=== PATIENT | male | born 1945 | race Caucasian/White ===

== ENCOUNTER → 2023-05-13 11:33 | Outpatient (REF) | payer MEDICARE, OTHER, SELFPAY ==
[2023-05-13 13:20] LABS: HDL Cholesterol 54 mg/dl; LDL Cholesterol, Calculated 69 mg/dl; Total Cholesterol 146 mg/dl (50-199); Triglyceride 115 mg/dl (10-149); Very Low Density Lipoprotein 23 mg/dl (0-30)
== END ==
LOC: REG 11:33
PROVIDERS: ATTENDING PHYSICIAN Internal Medicine Cardiovascular Disease; FAMILY PHYSICIAN Internal Medicine
DX: E78.2 Mixed hyperlipidemia (principal)
CPT/HCPCS: 36415; 80061

== ENCOUNTER → 2023-05-28 15:55 | Outpatient (REF) | payer MEDICARE, OTHER, SELFPAY | LOC: RCS 15:55 | PROVIDERS: ATTENDING PHYSICIAN Internal Medicine Cardiovascular Disease; FAMILY PHYSICIAN Internal Medicine | DX: I35.0 Nonrheumatic aortic (valve) stenosis (principal) | CPT/HCPCS: 93306 ==

== ENCOUNTER → 2023-06-17 10:09 | Outpatient (REF) | payer MEDICARE, OTHER, SELFPAY ==
[2023-06-21 01:19] LABS: Albumin 4.35 g/dL (3.75-5.01); Alpha 1 Globulin 0.35 g/dL (0.19-0.46); Free Kappa Light Chains,Quant 14.75 mg/L (3.30-19.40); Free Lambda Light Chains,Quant 8.49 mg/L (5.71-26.30); IgA 83 mg/dL (68-408); IgG 560 mg/dL (768-1632); IgM 23 mg/dL (35-263); Immunofixation Electrophoresis IFE Done; Kappa/Lambda Fr Light Ratio 1.74 (0.26-1.65)
== END ==
LOC: REG 10:09
PROVIDERS: ATTENDING PHYSICIAN Internal Medicine Cardiovascular Disease; FAMILY PHYSICIAN Internal Medicine
DX: I10 Essential (primary) hypertension (principal)
CPT/HCPCS: 36415; 82784; 83521; 84155; 84165; 86334

== ENCOUNTER → 2023-06-19 14:33 | Outpatient (REF) | payer MEDICARE, OTHER, SELFPAY ==
[2023-06-22 23:59] LABS: 24 Hour Urine Total Volume 1650 mL; Urine Collection Length 24 hr; Urine Free Kappa Excretion/Day 4.12 mg/d; Urine Free Lambda Light Chains <0.74 mg/L (0.00-3.79)
== END ==
LOC: REG 14:33
PROVIDERS: ATTENDING PHYSICIAN Internal Medicine Cardiovascular Disease; FAMILY PHYSICIAN Internal Medicine
DX: I10 Essential (primary) hypertension (principal)
CPT/HCPCS: 81050; 83521; 84156; 86335

== ENCOUNTER → 2023-07-01 10:50 | Outpatient (REF) | payer MEDICARE, OTHER, SELFPAY | LOC: RAD 10:50 | PROVIDERS: ATTENDING PHYSICIAN Internal Medicine Cardiovascular Disease; FAMILY PHYSICIAN Internal Medicine | DX: E85.9 Amyloidosis, unspecified (principal) | CPT/HCPCS: 78803; A9538 ==

== ENCOUNTER → 2023-11-24 10:16 | Outpatient (REF) | payer MEDICARE, OTHER, SELFPAY | LOC: RCS 10:16 | PROVIDERS: ATTENDING PHYSICIAN Internal Medicine Cardiovascular Disease; FAMILY PHYSICIAN Internal Medicine | DX: I10 Essential (primary) hypertension (principal); I35.0 Nonrheumatic aortic (valve) stenosis | CPT/HCPCS: 93306 ==

== ENCOUNTER → 2023-12-31 10:06 | Outpatient (REF) | payer MEDICARE, OTHER, SELFPAY ==
[2023-12-31 11:12] LABS: % Basophils 0.8 % (0-2); % Eosinophils 1.5 % (0-6); % Immature Granulocytes 0.5 % (0-0.5); % Lymphocytes 26.6 % (20.5-51.1); % Monocytes 7.7 % (1.7-9.3); % Neutrophils 62.9 % (42.2-75.2); Absolute Basophils 0.1 10^3/uL (0-0.2); Absolute Eosinophils 0.1 10^3/uL (0-0.7); Absolute Lymphocytes 1.7 10^3/uL (1.2-3.4); Absolute Monocytes 0.5 10^3/uL (0.1-0.6); Absolute Neutrophils 4.1 10^3/uL (1.4-6.5); Hematocrit 44.4 % (39.0-52.0); Hemoglobin 15.1 g/dL (13.0-18.0); Mean Corpuscular Hgb 28.7 pg (27.0-31.0); Mean Corpuscular Volume 84.3 fL (80.0-94.0); Mean Platelet Volume 10.7 fL (7.4-10.4); Nucleated Red Blood Cells % 0 % (-); Platelet Count 130 10^3/uL (130-400); Red Blood Cell Count 5.27 10^6/uL (4.70-6.10); Red Cell Dist. Width 13.3 % (11.5-14.5); White Blood Cell Count 6.5 10^3/uL (4.8-10.8)
[2023-12-31 11:58] LABS: ALT (SGPT) 28 U/L (0-50); AST (SGOT) 26 U/L (17-59); Albumin 4.7 g/dl (3.5-5.0); Alkaline Phosphatase 50 U/L (38-126); Blood Urea Nitrogen 20 mg/dl (9-20); Calcium 9.8 mg/dl (8.4-10.2); Carbon Dioxide 24 mmol/L (22-30); Chloride 103 mmol/L (98-107); Glucose 98 mg/dl (70-99); HDL Cholesterol 52 mg/dl; LDL Cholesterol, Calculated 65 mg/dl; Potassium 4.6 mmol/L (3.5-5.1); Sodium 141 mmol/L (135-145); Total Bilirubin 0.7 mg/dl (0.2-1.3); Total Cholesterol 137 mg/dl (50-199); Total Protein 6.7 g/dl (6.3-8.2); Triglyceride 102 mg/dl (10-149); Very Low Density Lipoprotein 20 mg/dl (0-30); eGFR > 60.00
[2023-12-31 12:02] LABS: NT-proBNP 132 pg/ml
== END ==
LOC: REG 10:06
PROVIDERS: ATTENDING PHYSICIAN Internal Medicine Cardiovascular Disease; FAMILY PHYSICIAN Internal Medicine
DX: I10 Essential (primary) hypertension (principal); E78.2 Mixed hyperlipidemia; I35.0 Nonrheumatic aortic (valve) stenosis
CPT/HCPCS: 36415; 80053; 80061; 83880; 85025

== ENCOUNTER 2024-01-02 06:13 | Day surgery (SDC) | payer MEDICARE, OTHER, SELFPAY ==
[2024-01-02] VITALS (16 sets, daily range): BP systolic 110–160; BP diastolic 61–89; BMI 36.0
[2024-01-02] MEDS: LOW STRENGTH ASPIRIN 81 MG PO (06:50)
[2024-01-02] MEDS: NSS 331 ML IV (07:07)
[2024-01-02 09:05] LABS: ACT-LR - POC 266 Seconds (116-155)
[2024-01-02 09:20] LABS: ACT-LR - POC 366 Seconds (116-155)
[2024-01-02] MEDS: LASIX 20 MG IV (10:04)
--- NOTE | 2024-01-02 11:56 | CONSULT.STRU ---
Consultation
-
Date/Time Consultation Requested: 01/02/2024
Date/Time Consultation Performed: 01/02/2024
Requesting Provider: Dr. Miriam Issa
Performing Provider: EDUARDO Oropeza
Reason for Consultation: Aortic stenosis/ TAVR evaluation
Patient History
Physicians
Family Physician: Dr. Butch Donahue
Outpatient Forensic Psychiatrist: Dr. Florencia Whatley
Primary Forensic Psychiatrist: Dr. Florencia Whatley
History of Present Illness
Mr. Gauthier is a very pleasant 78yo male with know history of aortic stenosis. He denies any symptoms of GANDHI, SOB, palpitations, PND, orthopnea or peripheral edema. He does say he has had some very mild chest discomfort on occasion but not associated
with rest or exertion. It has been short lived and self resolving, No predisposing factors that he is aware of. No radiation to neck or arm. No other associated symptoms. 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 It is really unclear if either of these are related to his aortic stenosis. His echo on 11/24/2023 noted EF 55-60%, AV PG/M/33, IRIS: 0.6-0.7, mild AI, mild MR, mild mitral stenosis.
Reviewed the pathophysiology of aortic stenosis with the patient. Explained the treatment options of SAVR and TAVR. Explained the TAVR evaluation process including follow up BMP, CT TAVR scan, CT surgery consult and Heart Team discussion. Explained
he will need dental clearance prior to his valve replacement. Provided with script for BMP next week, script and appointment for CT TAVR, Consult appointment with Dr. Reyes and a copy of the TAVR education booklet with contact information. Allowed
for and answered questions.
Past Medical History
Past Medical History: CAD, Cancer (h/o prostate cancer ad basal cell), GERD, HTN, Hypercholesterolemia, LINDA (CPAP compliant), Valvular Disease (Moderate to severe aortic stenosis, mild AI, mild mitral stenosis, mild MR, mild TR) and Other (anemia,
h/o GI bleeding)
Past Surgical History
Past Surgical History: Orthopedic (Right THR, Right rotator cuff repair) and Other (radical prostatectomy, spinal ablation, bilateral cataract surgery, removal of basal cell CA, ankle surgery)
Dental History
Regular dental care- Dr. Mckenzie Freire
Family History
Mother: at Age (78yo, COPD)
Father: at Age (61yo, [place])
Social History
Alcohol: Occasional
Drug: None
Tobacco: Former Smoker
Personal:
Living: With Spouse
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
Allergies
Allergy/AdvReac Type Severity Reaction Status Date / Time
pollen extracts Allergy SNEEZING/STUFFY Verified 01/02/24 07:01
NOSE
Home Medications
�Medication �Instructions �Recorded �Confirmed �Type
coenzyme Q10 300 mg capsule (Co 300 mg PO DAILY Supplement 10/11/19 01/02/24 History
Q-10)
multivitamin 1 ea PO DAILY Supplement 10/11/19 01/02/24 History
ferrous sulfate 325 mg (65 mg 325 mg PO DAILY Supplement 10/23/19 01/02/24 History
iron) tablet (FeroSul)
aspirin 81 mg tablet,delayed 81 mg PO DAILY Blood clot 10/25/19 01/02/24 Rx
release prevention/tx ##0
cholecalciferol (vitamin D3) 25 2,000 units PO DAILY 12/09/19 01/02/24 History
mcg (1,000 unit) tablet
krill 500 mg-omega-3 150 mg-dha 45 1 ea PO DAILY 12/28/19 01/02/24 History
mg-epa 75 [id number] capsule
(krill oil)
ezetimibe 10 mg tablet (Zetia) 10 mg PO DAILY 01/02/24 01/02/24 History
furosemide 20 mg tablet (Lasix) 20 mg PO DAILY #90 tabs 01/02/24 Rx
lisinopril 20 mg tablet 20 mg PO DAILY 01/02/24 01/02/24 History
metoprolol succinate 25 mg 50 mg (2 x 25 mg) PO DAILY Blood 01/02/24 01/02/24 Rx
tablet,extended release 24 hr pressure #0 tabs
rosuvastatin 20 mg tablet 40 mg (2 x 20 mg) PO DAILY #0 tabs 01/02/24 01/02/24 Rx
STS%
STS %: 1.5% AVR, 2.2% AVR + CABG
Review of Systems
-
History Source: Patient
General: Reports No Symptoms; Denies Fatigue
HEENT: Reports No Symptoms
Respiratory: Reports No Symptoms; Denies SOB, GANDHI, Cough or PND
Cardiac: Reports Chest Pain (has felt on occasion very minimal chest discomfort, relieved with no intervention); Denies Palpitations or Edema
Abdomen/GI: Reports No Symptoms; Denies Abdominal Pain, Reflux, Indigestion, Diarrhea or Constipation
: Reports Frequency; Denies Urgency or Hematuria
Musculoskeletal: Reports No Symptoms; Denies Edema
Skin: Reports No Symptoms
Neurological: Reports Syncope (atatre on brief syncopal episode when changing a lightbulb a few months ago)
Vascular: Reports No Symptoms
Physical Exam
Vital Signs
Temp 97.3 F 01/02/24 06:52
Temp route: Oral 01/02/24 06:52
Pulse 72 01/02/24 10:04
Resp Rate 22 01/02/24 07:15
Blood pressure 133/63 01/02/24 10:04
Blood pressure extremity used: Left upper arm 01/02/24 06:52
Position: Sitting 01/02/24 06:52
MAP (cuff-Felipe Monitor) 98 01/02/24 06:45
SaO2 97 01/02/24 06:52
Oxygen Mode of Delivery Room air 01/02/24 06:52
Can the patient verbally communicate their pain? Yes 01/02/24 06:52
Actual Weight 110.4 kg 01/02/24 06:51
Body Mass Index (BMI) 36.0 01/02/24 06:51
Labs
12/31/2023:
H/H: 15.1/44.4
WBC: 6.5
Platelets: [id number]
BUN/Creat: 20/0.8
GFR: >60
Diagnostic Studies
Echocardiogram 11/24/2023:
CONCLUSIONS
Normal left ventricular chamber size. Normal left ventricular systolic
function. Normal regional wall motion. LVEF visually 55 to 60%. Moderate
concentric left ventricular hypertrophy. Stage II diastolic dysfunction
suggestive of abnormal relaxation and increased filling pressures.
Normal right ventricular size and function.
Thickened mitral valve leaflets. Mitral annular calcification. Mild mitral
stenosis. Mild mitral regurgitation.
Calcified aortic valve. Thickened aortic valve with restricted leaflet motion.
Moderate to severe aortic stenosis. Peak gradient 58mmHg/Mean gradient 33mmHg -
using an LVOT of 2.1cm the estimated aortic valve area is 0.6-0.7cm2. Mild
aortic regurgitation.
Tricuspid valve opens normally. Mild tricuspid regurgitation. Estimated
pulmonary artery pressure of 35-40 mmHg assuming a right atrial pressure of 3
mmHg.
Compared to prior study 05/28/2023 no significant change.
Indications:
ESSENTIAL (PRIMARY) HYPERTENSION
Rhythm: Sinus
Portable Study: No
Technical Quality: Technically difficult but
adequate for interpretation
Contrast: None
BP: 150 / 78
PROCEDURE
A complete Transthoracic Echocardiogram was performed utilizing two-dimensional
evaluation with color flow and spectral Doppler analysis.
FINDINGS
Left Ventricle
Normal left ventricular chamber size. Normal left ventricular systolic
function. Normal regional wall motion. LVEF visually 55 to 60%. Moderate
concentric left ventricular hypertrophy. Stage II diastolic dysfunction
suggestive of abnormal relaxation and increased filling pressures.
Right Ventricle
Normal right ventricular size and function.
Left Atrium
Indexed LA volume is moderately abnormal (42-48 mL/m2).
Right Atrium
Normal right atrium.
Mitral Valve
Thickened mitral valve leaflets. Mitral annular calcification. Mild mitral
stenosis. Mild mitral regurgitation.
Aortic Valve
Calcified aortic valve. Thickened aortic valve with restricted leaflet motion.
Moderate to severe aortic stenosis. Peak gradient 58mmHg/Mean gradient 33mmHg -
using an LVOT of 2.1cm the estimated aortic valve area is 0.6-0.7cm2. Mild
aortic regurgitation.
Tricuspid Valve
Tricuspid valve opens normally. Mild tricuspid regurgitation. Estimated
pulmonary artery pressure of 35-40 mmHg assuming a right atrial pressure of 3
mmHg.
Pulmonic Valve
Pulmonic valve opens normally. Trace pulmonic regurgitation.
Pericardium\\Pleura
Normal pericardium and pleura without evidence of effusion.
Aorta
The aortic root is normal in caliber. The aortic arch is normal in caliber.
Other Finding
The IVC is of normal size and demonstrates normal respiratory variation.
Interatrial septum is intact with no evidence of shunting by color flow
Doppler. No intracardiac mass or thrombus formation seen.
MEASUREMENTS (Male / Female) Normal Values
2D ECHO
LV Diastolic Diameter PLAX 4.9 cm 4.2 - 5.9 / 3.9 - 5.3 cm
LV Systolic Diameter PLAX 3.5 cm
IVS Diastolic Thickness 1.5 cm 0.6 - 1.0 / 0.6 - 0.9 cm
LVPW Diastolic Thickness 1.2 cm 0.6 - 1.0 / 0.6 - 0.9 cm
LV Relative Wall Thickness 0.6
LVOT Diameter 2.1 cm
LA Area 4C View 29.6 cm2 <= 20 cm2
LA Length 4C 6.7 cm
LA Volume 104.0 cm3 18 - 58 / 22 - 52 cm3
RV Diastolic Basal Diameter 3.5 cm 2.0 - 2.8 cm
RV Diastolic Mid Diameter 2.8 cm 2.7 - 3.3 cm
Aorta at Sinotubular Diameter 3.2 cm
Ascending Aorta Diameter 3.5 cm
Aorta at Sinuses Diameter 3.4 cm
DOPPLER
AV Peak Velocity 380.0 cm/s
AV Peak Gradient 57.8 mmHg
AV Mean Gradient 33.0 mmHg
AV Velocity Time Integral 85.5 cm
LVOT Peak Velocity 71.8 cm/s
LVOT Peak Gradient 2.1 mmHg
LVOT Velocity Time Integral 14.9 cm
LVOT Stroke Volume 53.9 cm3
LVOT Stroke Volume Index 22.9 ml/m2 empty
LVOT Cardiac Index 1394.2 cm3/min
AV Area Cont Eq vti 0.6 cm2
AV Area Cont Eq pk 0.7 cm2
MV Peak Velocity 101.0 cm/s
MV Peak Gradient 4.1 mmHg
MV Mean Velocity 51.7 cm/s
MV Mean Gradient 1.0 mmHg
Mitral E Point Velocity 78.0 cm/s
Mitral A Point Velocity 59.8 cm/s
Mitral E to A Ratio 1.3
LV E' Lateral Velocity 7.8 cm/s
Mitral E to LV E' Lateral Ratio 10.0
LV E' Septal Velocity 5.8 cm/s
Mitral E to LV E' Septal Ratio 13.5
TR Peak Velocity 295.0 cm/s
TR Peak Gradient 34.8 mmHg
Exam
General: Well Developed, Well Nourished, No Apparent Distress and Comfortable
HEENT: Moist Mucous Membranes and PERRLA
Neck: Trachea Midline
Respiratory: Clear; Negative Wheezes, Crackles, Rhonchi or Accessory Muscle Use
Cardiac: S1/S2, Regular Rhythm and Murmur (Grade III/ systolic )
GI: Soft, Non Tender, Non Distended and Normal Bowel Sounds
Rectal: Deferred by Provider
Skin: Warm and Dry
Neuro: AO x 3, No Motor Deficits and Nonfocal/Grossly Intact
Extremities: Pulses (+2 DP pulses bilaterally); Negative Lower Level Edema
Psych: Calm
Assessment / Plan
-
Procedure Type:�Isolated AVR
PERIOPERATIVE OUTCOME ESTIMATE %
Operative Mortality 1.5%
Morbidity & Mortality 7.21%
Stroke 0.951%
Renal Failure 1.12%
Reoperation 3.83%
Prolonged Ventilation 2.64%
Deep Sternal Wound Infection 0.057%
Long Hospital Stay (>14 days) 2.47%
Short Hospital Stay (<6 days)* 52.9%
Procedure Type:�CABG + AVR
PERIOPERATIVE OUTCOME ESTIMATE %
Operative Mortality 2.2%
Morbidity & Mortality 8.91%
Stroke 0.963%
Renal Failure 1.27%
Reoperation 4.53%
Prolonged Ventilation 4.51%
Deep Sternal Wound Infection 0.105%
Long Hospital Stay (>14 days) 5.55%
Short Hospital Stay (<6 days)* 36.7%
Severe Aortic stenosis:
��������������� Continue evaluation for TAVR
��������������� BMP 01/09/2024 at [facility]
��������������� CT TAVR scan 01/14/2024 at
��������������� CT surgery consult with Dr. Reyes 01/21/2024 at 1000
��������������� Heart team discussion at [facility]
Dental clearance
CAD
Heart healthy diet
ASA/BB/statin
Recommendations per cardiology
Data Reviewed
-
EKG: Report Reviewed by me
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
Echo: Report Reviewed by me
Labs: Labs Reviewed by me
Old Records: Reviewed (Cardiology office notes)
Total Time Spent with Patient (in minutes): 30
--- NOTE | 2024-01-02 15:22 | ITS.CL.CATH ---
[facility] - Catheterization
Cardiac Catheterization
Procedure Report:
LEFT AND RIGHT HEART CATHETERIZATION
Date of Procedure: January 02, 2024
Referring: Dr. Florencia Whatley
PROCEDURES:
1. Left heart catheterization, coronary angiogram.
2. Right heart catheterization
3. Ultrasound-guided access
INDICATION: Patient is a 78-year-old gentleman with past medical history of hypertension, hyperlipidemia, obstructive sleep apnea, morbid obesity, right hip osteoarthritis, coronary artery disease, moderate to severe aortic stenosis by echo with
trans aortic mean gradient of 33 mmHg who presents today for a left and right heart catheterization given recent exertional chest discomfort and shortness of breath to rule out obstructive CAD or severe aortic stenosis and assess invasive
hemodynamics
ACCESS:
1. Right radial artery, 6 [place] sheath, under ultrasound guidance.
2. Right brachial vein, 6 [place] sheath, under ultrasound guidance.
HEMODYNAMICS : (mmHg)
RA (m) : 13
RV (s/d,m) : 46/12, 20
PA (s/d, m) : 42/21, 30
PCWP (m) : 19
PA saturation: 74.2% on room air
AO saturation: 95.7% on room air
SVC saturation: 77.9% on room air
Cardiac Output : 6.02 L/min
Cardiac Index : 2.7 L/min/m-2
Systemic vascular resistance: 1221 dsc^(-5)
Pulmonary vascular resistance: 1.83 barton unit
Heart rate: 60 bpm
AO (s/d) : 158/75
LV (s/d) : 194/15
LVEDP : 24
Mean transaortic gradient invasively is 41 mmHg with aortic valve area of 0.88 cm� consistent with severe aortic stenosis.
CORONARY FINDINGS
DOMINANCE: Left
LEFT MAIN: The left main artery is a large-caliber vessel which gives rise to the left anterior descending artery and the left circumflex artery. There is minimal luminal irregularities.
LEFT ANTERIOR DESCENDING: The left anterior descending artery is a medium to large caliber vessel which gives rise to 2 major diagonal branches as it courses to the anterior interventricular groove and wraps around the apex with [id number]
collaterals. Mid LAD distal to D2 has a focal hazy, calcified 80 to 85% stenosis.
CIRCUMFLEX: The left circumflex artery is a medium caliber, dominant vessel which gives rise to 1 major branching obtuse marginal branch. There is mild diffuse atherosclerotic plaque.
RIGHT CORONARY ARTERY: The right coronary artery is a small caliber, nondominant vessel with a known chronic total occlusion in the midportion.
SEDATION: 39 minutes of procedural sedation was utilized. An independent biomedical engineer was present to assist with and help manage the patient's level of consciousness and physiologic status.
RADIATION SUMMARY: Fluoro Time (min): 21.7, Dose (mGy): 1083.98, DAP (Gy.cm2) : 70.1
Closure Device: Vascular band over right radial artery, 10 cc of air.
CONCLUSIONS
1. Left dominant circulation.
2. Focal mid LAD 80 to 85% calcified stenosis.
3. Mean transaortic gradient invasively is 41 mmHg with aortic valve area of 0.88 cm� consistent with severe aortic stenosis.
4. Elevated LVEDP at 24 mmHg.
5. Elevated right and left-sided filling pressures with normal cardiac output.
RECOMMENDATIONS
1. Proceed with completion of TAVR workup by getting a CT angiogram of chest, abdomen and pelvis per TAVR protocol and CT surgery consult to discuss TAVR/PCI versus SAVR and single-vessel CABG.
2. Aggressive management of cardiovascular risk factors.
3. Wean radial band per protocol.
Copy to: Dr. Florencia Whatley.
Miriam Issa MD, [facility], [facility]
== END 2024-01-02 12:52 | disposition home or self-care (01) ==
LOC: CATH 06:13
PROVIDERS: ATTENDING PHYSICIAN Internal Medicine Interventional Cardiology; FAMILY PHYSICIAN Internal Medicine; OTHER PHYSICIAN Internal Medicine Cardiovascular Disease
DX: I25.10 Atherosclerotic heart disease of native coronary artery without angina pectoris (principal); E66.01 Morbid (severe) obesity due to excess calories; M16.11 Unilateral primary osteoarthritis, right hip; I08.3 Combined rheumatic disorders of mitral, aortic and tricuspid valves; G47.33 Obstructive sleep apnea (adult) (pediatric); E78.00 Pure hypercholesterolemia, unspecified; I10 Essential (primary) hypertension; R06.02 Shortness of breath; R07.89 Other chest pain; Z87.891 Personal history of nicotine dependence; I25.84 Coronary atherosclerosis due to calcified coronary lesion
CPT/HCPCS: 99152; 99153; 85347; 93005; 93460; C1769; C1894; Q9967

== ENCOUNTER → 2024-01-08 14:23 | Outpatient (REF) | payer MEDICARE, OTHER, SELFPAY ==
[2024-01-08 16:35] LABS: Blood Urea Nitrogen 26 mg/dl (9-20); Calcium 9.6 mg/dl (8.4-10.2); Carbon Dioxide 24 mmol/L (22-30); Chloride 103 mmol/L (98-107); Glucose 99 mg/dl (70-99); Potassium 4.2 mmol/L (3.5-5.1); Sodium 142 mmol/L (135-145); eGFR > 60.00
== END ==
LOC: REG 14:23
PROVIDERS: ATTENDING PHYSICIAN Nurse Practitioner Adult Health; FAMILY PHYSICIAN Internal Medicine
DX: I35.0 Nonrheumatic aortic (valve) stenosis (principal)
CPT/HCPCS: 36415; 80048

== ENCOUNTER → 2024-01-14 09:15 | Outpatient (REF) | payer MEDICARE, OTHER, SELFPAY | LOC: RAD 09:15 | PROVIDERS: ATTENDING PHYSICIAN Nurse Practitioner Adult Health; FAMILY PHYSICIAN Internal Medicine | DX: I35.0 Nonrheumatic aortic (valve) stenosis (principal) | CPT/HCPCS: 74174; 75572; Q9967 ==

== ENCOUNTER 2024-02-03 06:29 | Day surgery (SDC) | payer MEDICARE, OTHER, SELFPAY ==
[2024-02-02 18:03] VITALS: BMI 35.8
[2024-02-03] VITALS (14 sets, daily range): BP systolic 138–164; BP diastolic 64–108; BMI 35.8
[2024-02-03] MEDS: LOW STRENGTH ASPIRIN 81 MG PO (07:14)
[2024-02-03 07:25] LABS: Hematocrit 41.1 % (39.0-52.0); Hemoglobin 14.4 g/dL (13.0-18.0); Mean Corpuscular Hgb 28.9 pg (27.0-31.0); Mean Corpuscular Volume 82.4 fL (80.0-94.0); Mean Platelet Volume 11.2 fL (7.4-10.4); Platelet Count 115 10^3/uL (130-400); Red Blood Cell Count 4.99 10^6/uL (4.70-6.10); Red Cell Dist. Width 13.2 % (11.5-14.5); White Blood Cell Count 6.3 10^3/uL (4.8-10.8)
[2024-02-03] MEDS: PLAVIX 600 MG PO (08:11)
[2024-02-03] MEDS: NSS 1000 IV (11:12)
[2024-02-03] MEDS: TOPROL XL 50 MG PO (11:28)
[2024-02-03] MEDS: ZESTRIL 20 MG PO (12:27)
--- NOTE | 2024-02-03 13:15 | ITS.CL.CATH ---
[employer] - Catheterization
Cardiac Catheterization
Procedure Report:
CORONARY INTERVENTION
Date of Procedure: February 03, 2024
Referring: Dr. Florencia Whatley
PROCEDURES:
1. Selective left coronary angiogram.
2. Successful percutaneous coronary artery intervention of mid LAD with a 3.0 x 15 mm Medtronic Nazario frontier drug-eluting stent, postdilated with a 3.0 x 12 mm NC balloon at 18 candis with an excellent angiographic result.
INDICATION: Patient is a 78-year-old gentleman with past medical history of hypertension, hyperlipidemia, obstructive sleep apnea, morbid obesity, right hip osteoarthritis, coronary artery disease, severe aortic stenosis noted on recent left and
right heart catheterization with significant focal mid LAD stenosis and ongoing exertional chest discomfort and shortness of breath who presents today for scheduled mid LAD PCI prior to TAVR.
ACCESS:
1. Right radial artery, 6 Croatian sheath, under ultrasound guidance.
HEMODYNAMICS : (mmHg)
AO (s/d) : 158/75
LV (s/d) : 194/15
LVEDP : 24
Mean transaortic gradient invasively is 41 mmHg with aortic valve area of 0.88 cm� consistent with severe aortic stenosis.
CORONARY FINDINGS
DOMINANCE: Left
LEFT MAIN: The left main artery is a large-caliber vessel which gives rise to the left anterior descending artery and the left circumflex artery. There is minimal luminal irregularities.
LEFT ANTERIOR DESCENDING: The left anterior descending artery is a medium to large caliber vessel which gives rise to 2 major diagonal branches as it courses to the anterior interventricular groove and wraps around the apex with [id number]
collaterals. Mid LAD distal to D2 has a focal hazy, calcified 80 to 85% stenosis. Intervention was performed to the mid LAD, with details below.
CIRCUMFLEX: The left circumflex artery is a medium caliber, dominant vessel which gives rise to 1 major branching obtuse marginal branch. There is mild diffuse atherosclerotic plaque.
RIGHT CORONARY ARTERY: The RCA was not selectively shot on this study. On recent heart catheterization, the right coronary artery is a small caliber, nondominant vessel with a known chronic total occlusion in the midportion.
CORONARY INTERVENTION: The left coronary artery was selectively engaged using a 6 [place]ian EBU 3.75 guide catheter. Additional heparin was given to maintain a therapeutic ACT throughout the case. A 190 cm 0.014' BMW coronary wire was carefully
navigated across the mid LAD stenosis into the distal LAD. The mid LAD lesion was predilated using a 3.0 x 10 mm semi-compliant balloon at 14 candis with good expansion. The lesion was subsequently stented using a 3.0 x 15 mm Medtronic Nazario frontier
drug-eluting stent and postdilated using a 3.0 x 12 mm NC balloon at 18 candis with an excellent angiographic result. Patient was loaded with 600 mg of Plavix this morning pre-procedurally. He tolerated the procedure well with no acute complications.
SEDATION: 40 minutes of procedural sedation was utilized. An independent medical staff manager was present to assist with and help manage the patient's level of consciousness and physiologic status.
RADIATION SUMMARY: Fluoro Time (min): 7.3, Dose (mGy): 595.34, DAP (Gy.cm2) : 43.05
Closure Device: Vascular band over right radial artery, 10 cc of air.
CONCLUSIONS
1. Left dominant circulation.
2. Focal mid LAD 80 to 85% calcified stenosis. This was successfully treated with a 3.0 x 15 mm Medtronic Steward frontier drug-eluting stent, postdilated with a 3.0 x 12 mm NC balloon at 18 candis with an excellent angiographic result and 0% residual
stenosis.
3. Known severe aortic stenosis with recent heart catheterization showing mean transaortic gradient invasively is 41 mmHg with aortic valve area of 0.88 cm�
RECOMMENDATIONS
1. Wean radial band per protocol.
2. Dual antiplatelet therapy with daily baby aspirin and 75 mg of Plavix along with high intensity statin and beta-jcarlos as tolerated.
3. Schedule staged TAVR in 3 to 4 weeks post PCI.
Copy to: Dr. Florencia Whatley.
Miriam Issa MD, FAC, [facility]
--- NOTE | 2024-02-03 14:46 | W.PN.UPDATE ---
Update Note
Progress Note Update
78 yo WM s/p PCI LAD x 1 (same day). He denies cp, sob, jennie diet, voiding, amb w/o dizziness, EKG SR no ST changes, R rad site c/d/i no HT. He will be on DAPT ASA/Plavix (loaded with 600mg this am). He will continue toprol and lisinopril. Cardiac
rehab c/s. Activity restrictions reviewed. 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 Whatley. He is for d/c home after 4pm if rad site stable.
== END 2024-02-03 16:00 | disposition home or self-care (01) ==
LOC: CATH 06:29
PROVIDERS: ATTENDING PHYSICIAN Internal Medicine Interventional Cardiology
DX: I25.10 Atherosclerotic heart disease of native coronary artery without angina pectoris (principal); M16.11 Unilateral primary osteoarthritis, right hip; G47.33 Obstructive sleep apnea (adult) (pediatric); E78.5 Hyperlipidemia, unspecified; I10 Essential (primary) hypertension; I35.0 Nonrheumatic aortic (valve) stenosis; Z95.5 Presence of coronary angioplasty implant and graft; E66.9 Obesity, unspecified; R06.02 Shortness of breath; Z79.82 Long term (current) use of aspirin; Z79.02 Long term (current) use of antithrombotics/antiplatelets; I25.84 Coronary atherosclerosis due to calcified coronary lesion
CPT/HCPCS: 99152; 99153; 85027; 85347; 93005; C1725; C1769; C1874; C1894; C9600; Q9967

== ENCOUNTER 2024-03-25 07:32 | Inpatient (IN) | payer MEDICARE, OTHER, SELFPAY ==
[2024-03-15 11:59] VITALS: BMI 36.6
--- NOTE | 2024-03-15 12:27 | HPS.HSE ---
Family Physician
-
Family Physician: Butch Donahue
Mass Spectroscopist: Florencia Whatley
Chief Complaint
-
Pre-operative history and physical for TF-TAVR 03/25/2024
History of Present Illness
Mr. Gauthier is a very pleasant 78yo male with know history of aortic stenosis. He denies any symptoms of GANDHI, SOB, palpitations, PND, orthopnea or peripheral edema. He does say he has had some very mild chest discomfort on occasion but not associated
with rest or exertion. It has been short lived and self resolving, No predisposing factors that he is aware of. No radiation to neck or arm. No other associated symptoms. 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 It is really unclear if either of these are related to his aortic stenosis. His echo on 11/24/2023 noted EF 55-60%, AV PG/M/33, IRIS: 0.6-0.7, mild AI, mild MR, mild mitral stenosis.
Cardiac Cath completed on 02/03/2024 which showed Left dominant circulation. Focal mid LAD 80 to 85% calcified stenosis. This was successfully treated with a 3.0 x 15 mm Medtronic Nazario frontier drug-eluting stent, postdilated with a 3.0 x 12 mm NC
balloon at 18 candis with an excellent angiographic result and 0% residual stenosis and known severe aortic stenosis.
Reviewed the risks of TAVR with patient including PPM, stroke, bleeding. Allowed for and answered questions. Instructed to stop Krill oil now. He may remain on his other medications until day of his TAVR. The morning of he will be a 0730 arrival and
will take his asa and Plavix prior to arrival. He is aware he will receive a call the day prior to confirm.
Medical History
Past Medical History
Past Medical History: Reports CAD, Cancer (Prostate), GERD, HTN, Hypercholesterolemia, Valvular Disease (Severe , Mild AI, Mild MR, Mild TR) and Other (Herniated disc-thoracic and lumbar, basal cell cancer, colon polyps, h/o GI bleed, anemia,
hemorrhoids, cataracts, LINDA(CPAP))
Past Surgical History: Reports Cardiac (PCI to LAD 02/03/2024), Orthopedic (right rotator cuff repair, reconstruction of the right ankle, R-THR, spinal ablation), Tonsilectomy and Other (cataract surgery, Prostate surgery)
Social History
Tobacco: Former Smoker
Alcohol: Occasional
Drug: None
Personal:
Living: With Family
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
Family History
Family History: CAD and Diabetes
Allergies / Home Medications
Allergies reflects when Allergies were last updated in [employer].
Home Medications with original date entered in [employer]
Allergy/Medication List:
Allergies:
Adhesive tape
Medications:
Acetaminophen ER 650 MG Tablet Extended Release 2 tab Orally Once a Day
Aspirin 81 MG Tablet Delayed Release 1 tablet Orally Once a Day
Plavix 75mg daily
CoQ-10 150 MG Capsule 2 tablets Orally Once a Day
CPAP Mask and Supplies DX G47.30 Misc as directed as directed
Ferrous Sulfate 325 (65 Fe) MG Tablet 1 tablet Orally Once a day
Furosemide 20 MG Tablet 1 tablet Orally Once a dayKrill Oil 500 MG Capsule 1 cap Orally Once a Day
Lisinopril 20 MG Tablet 1 tablet Orally Once a Day
Metoprolol Succinate ER 50 MG Tablet Extended Release 24 Hour Orally Once a day
Rosuvastatin Calcium 40 MG Capsule Sprinkle 1 tablet Orally Once a Day
Turmeric 500 MG Capsule as directed Orally
Vitamin D3 25 MCG (1000 UT) Tablet 2 tablets Orally Once a day
Zetia 10 MG Tablet 1 tablet Orally Once a day
Review of Systems
-
History Source: Patient
Constitutional: Reports No Symptoms
EENT: Reports No Symptoms
Respiratory: Reports Cough (occasional, non-productive)
Cardiac: Reports No Symptoms; Denies Chest Pain, Diaphoresis, Palpitations or Syncope
Abdomen/GI: Reports No Symptoms; Denies Abdominal Pain, Nausea, Vomiting, Diarrhea or Bloody Stools
: Reports Frequency (relates to lasix); Denies Dysuria, Incontinence, Difficulty Voiding or Bleeding
Musculoskeletal: Reports No Symptoms
Skin: Reports No Symptoms; Denies Rash
Neurological: Reports No Symptoms; Denies Headache, Weakness or Numbness
Endocrine: Reports No Symptoms
Hematologic/Lymphatic: Reports No Symptoms
Psych: Reports No Symptoms and Calm
Physical Exam
Physical Exam
General: Well Developed, Well Nourished, No Apparent Distress and Comfortable
HEENT: NormoCephalic, Moist mucous membranes, PERRLA, Nose Appears Normal and Ears Appear Normal
Respiratory: Clear; No Wheezes, Rales or Rhonchi
Cardiac: S1/S2, Regular Rhythm and Murmur (Grade III/ systollic murmur)
Breast: Deferred by me
GI: Soft, Non Tender, Non Distended and Normal Bowel Sounds
Skin: Warm and Dry; No Rash
Neuro: AO x 3, No Motor Deficits and Nonfocal/grossly intact
Psych: Calm and Intact Judgment/Insight
Data Reviewed
-
Diagnostic Radiology: Report Reviewed by me (chest x-ray-clear lungs)
CT Scan: Report Reviewed by me (Reviewed measurements for TAVR )
Medical Tests (Nuc Med, Echo, EKG etc): Report Reviewed by me (EKG-no conduction issues noted)
Lab Data: Labs Reviewed by me
Old Records: Reviewed (office notes)
Impression/Plan
-
IMPRESSION:
Severe Aortic Stenosis
CAD with recent PCI
PLAN:
Aortic Stenosis:
-Proceed with TF-TAVR utilizing a 29mm S3 Ultra valve
-POD #1/#30 echocardiogram
-Continue ASA/Plavix daily
-Cardiac rehab consult
CAD with recent stent to LAD
-Heart healthy diet
-Continue ASA/Plavix
-Statin/BB as prescribed by cardiology
-Follow up with Dr. Whatley as outpatient.
Labs
-
Labs:
WBC 6.8 10^3/uL (4.8-10.8) 03/15/24 12:11
RBC 5.01 10^6/uL (4.70-6.10) 03/15/24 12:11
Hgb 14.7 g/dL (13.0-18.0) 03/15/24 12:11
Hct 43.9 % (39.0-52.0) 03/15/24 12:11
Plt Count 146 10^3/uL (130-400) 03/15/24 12:11
Sodium 142 mmol/L (135-145) 03/15/24 12:11
Potassium 4.4 mmol/L (3.5-5.1) 03/15/24 12:11
Chloride 105 mmol/L (98-107) 03/15/24 12:11
Carbon Dioxide 28 mmol/L (22-30) 03/15/24 12:11
BUN 22 mg/dl (9-20) H 03/15/24 12:11
Creatinine 0.8 mg/dL (0.7-1.3) 03/15/24 12:11
eGFR > 60.00 03/15/24 12:11
Glucose 99 mg/dl (70-99) 03/15/24 12:11
Calcium 9.4 mg/dl (8.4-10.2) 03/15/24 12:11
Kon-U-Ftiuumizegk Pept 100 pg/ml 03/15/24 12:11
Albumin 4.8 g/dl (3.5-5.0) 03/15/24 12:11
[2024-03-15 12:58] LABS: INR 0.89; PT 12.3 Sec (11.4-14.6)
[2024-03-15 12:59] LABS: % Basophils 0.9 % (0-2); % Eosinophils 1.9 % (0-6); % Immature Granulocytes 0.4 % (0-0.5); % Lymphocytes 26.1 % (20.5-51.1); % Monocytes 9.4 % (1.7-9.3); % Neutrophils 61.3 % (42.2-75.2); Absolute Basophils 0.1 10^3/uL (0-0.2); Absolute Eosinophils 0.1 10^3/uL (0-0.7); Absolute Lymphocytes 1.8 10^3/uL (1.2-3.4); Absolute Monocytes 0.6 10^3/uL (0.1-0.6); Absolute Neutrophils 4.2 10^3/uL (1.4-6.5); Hematocrit 43.9 % (39.0-52.0); Hemoglobin 14.7 g/dL (13.0-18.0); Mean Corp Hgb Conc. 33.5 g/dL (33.0-37.0); Mean Corpuscular Hgb 29.3 pg (27.0-31.0); Mean Corpuscular Volume 87.6 fL (80.0-94.0); Mean Platelet Volume 11.1 fL (7.4-10.4); Nucleated Red Blood Cells % 0 % (-); Platelet Count 146 10^3/uL (130-400); Red Blood Cell Count 5.01 10^6/uL (4.70-6.10); Red Cell Dist. Width 13.3 % (11.5-14.5); White Blood Cell Count 6.8 10^3/uL (4.8-10.8)
[2024-03-15 13:04] LABS: ALT (SGPT) 27 U/L (0-50); AST (SGOT) 25 U/L (17-59); Albumin 4.8 g/dl (3.5-5.0); Alkaline Phosphatase 34 U/L (38-126); Blood Urea Nitrogen 22 mg/dl (9-20); Calcium 9.4 mg/dl (8.4-10.2); Carbon Dioxide 28 mmol/L (22-30); Chloride 105 mmol/L (98-107); Direct Bilirubin 0.2 mg/dl (0.0-0.4); Estimated Creatinine Clearance 94 ml/min; Glucose 99 mg/dl (70-99); Potassium 4.4 mmol/L (3.5-5.1); Sodium 142 mmol/L (135-145); Total Bilirubin 0.5 mg/dl (0.2-1.3); eGFR > 60.00
[2024-03-15 13:12] LABS: NT-proBNP 100 pg/ml
[2024-03-15 13:12] LABS: Urine Albumin Negative (Neg - Trace); Urine Bilirubin Negative (Negative); Urine Character Clear (Clear); Urine Color Yellow; Urine Glucose Negative (Negative); Urine Ketone Negative (Negative); Urine Leukocyte Negative (Negative); Urine Nitrite Negative (Negative); Urine Occult Blood Negative (Negative); Urine Urobilinogen Negative (Neg - 1+)
--- NOTE | 2024-03-15 13:45 | CM ---
[facility] He states prior to admission he resides with spouse in a two story home with five steps to enter. He states he has a full flight of steps to get to bedroom/full bathroom. He states he has a powder room on the first
floor. He states prior to admission he was independent with ambulation and adls. He states he has a CPAP Machine at home and no other DME. He states he thinks he has a prescription plan. He states his spouse will be home to assist in his care if
needed. The discharge plan is to return home with his spouse and a home visit by the Transitional Care Nurse when medically stable.
We reviewed pr-op and post-op routines. We reviewed the shower instructions. He has the soap, written instructions and the TAVR Educational Booklet. We reviewed restrictions including lifting and driving restrictions. We discussed a home visit by
the Transitional Care Nurse. He is agreeable to a home visit. The plan is for TAVR on March.
[2024-03-15 14:41] LABS: Glycohemoglobin (HgbA1c) 5.5 % (4.0-5.6)
[2024-03-25] VITALS (19 sets, daily range): BP systolic 106–166; BP diastolic 53–77; BMI 35.8
--- NOTE | 2024-03-25 08:39 | W.CVOR.SURPR ---
CVOR Surgeon Immed Pre Op
-
I have examined this patient prior to performance of the scheduled procedure.
The patient's condition is unchanged from the time of the dictated/written History and
Physical and the patient is able to undergo the scheduled procedure.
TF TAVR
Full Rescue
[2024-03-25 10:27] LABS: ACT-LR - POC 331 Seconds (116-155)
[2024-03-25 10:42] LABS: ACT-LR - POC 361 Seconds (116-155)
--- NOTE | 2024-03-25 10:53 | ITS.CL.TAVR ---
Manager Video - TAVR Report
TAVR PRocedure
Procedure Report:
TRANSCATHETER AORTIC VALVE REPLACEMENT
Date of Procedure: March 25, 2024
Referring: Florencia Whatley
Operators: Drs. Miriam Issa and Dar Reyes
PROCEDURE PERFORMED:
1. Successful placement of 29 mm Goodrich Lolis S3 aortic valve via right common femoral approach.
PREPROCEDURE NYHA CLASS: II
DESCRIPTION OF PROCEDURE: The patient was referred for assessment of severe symptomatic aortic stenosis and following a comprehensive evaluation it was felt that transcatheter aortic valve replacement (TAVR) would be the most appropriate treatment.
Informed consent was obtained prior to the procedure. A 'time-out' was called and the procedural plan was verbally confirmed by anesthesia, surgery, perfusion, and laborer cook house staff.
Arterial and venous access site were obtained in the left common femoral artery and vein using ultrasound guidance and micropuncture technique. 6 Fr. sheaths were inserted.
A 5 Fr. transvenous pacing wire was advanced to the right ventricle where excellent pacing thresholds were obtained.
A 5 Fr. pigtail catheter was then advanced to the proximal ascending aorta / right aortic cusp where angiography was performed in multiple angles to define the co-planar angle that was most appropriate valve deployment (SAVANA 20/UTILITY WORKER 5).
Ultrasound guidance was then used to obtain arterial access in the right common femoral artery and a 6 Fr. sheath was inserted. Angiography was performed and the arteriotomy site appeared appropriate for preclosure with two Perclose devices. An 8
Fr sheath was then inserted back into the common femoral artery over a J-tipped guidewire. An AL1 catheter was positioned in the proximal descending aorta. Ax Extra Stiff 0.035' J-tip wire was inserted to provide extra-support to facilitate the
Goodrich eSheath delivery. The 16 Fr. Goodrich eSheath was advanced in the descending thoracic aorta.
An AL1 catheter was advanced through the Goodrich eSheath over a 0.035' J-tip guide wire. The AL1 catheter was positioned just above the aortic valve. A 0.035' Straight tip wire probed the aortic valve and crossed the stenotic leaflets. The AL1
was then advanced to the mid left ventricle. An Amplatz Extra-stiff wire with a generous curved tip was then positioned in the left ventricular apex. A 29 mm Goodrich Lolis S3 valve was brought to the table and the orientation of the valve on the
balloon delivery system was confirmed by all operators. The Lolis S3 valve was advanced through the eSheath and into the proximal descending thoracic aorta. The Lolis S3 valve was centered on the delivery balloon and the entire system was
retroflexed as it crossed the aortic arch. The Llois S3 delivery system was then advanced across the stenotic valve and the 29 mm Lolis S3 valve was deployed during rapid pacing. The valve deployment was uneventful. Transthoracic
echocardiographic images post valve deployment revealed minimal aortic insufficiency with excellent position of the aortic prosthesis.
The Goodrich balloon and delivery system were then removed. The Goodrich sheath was removed and the Perclose knots were advanced to the arteriotomy site resulting in excellent hemostasis.
Fluoro Time: 11.4 min, Dose: 1030.1 mGy, DAP : 85.08 Gy.cm2
CONCLUSIONS:
1. Severe symptomatic aortic stenosis. Successful deployment of a 29mm Lolis S3 valve with minimal aortic insufficiency post procedure
2. Successful arteriotomy closure with 2 Perclose devices.
3. Acute on chronic diastolic heart failure with LVEDP elevated at 30 mmHg.
Copy to: Florencia Whatley
Miriam Issa MD, [facility]
--- NOTE | 2024-03-25 10:53 | W.PN.UPDATE ---
Update Note
Progress Note Update
Reviewed Mr. Gauthier with the heart team in the preTAVR SDM meeting and confirmed a 29mm S3 via right transfemoral access. Patient will resume aspirin + plavix post TAVR. LVEDP 30mmHg. #29 mm S3 (serial# [id number]) succussfully deployed via right TF
access. Post implant MG 4mmHg.
--- NOTE | 2024-03-25 10:56 | W.PN.CT.SURG ---
CT Surgery Operative Note
-
OPERATIVE REPORT
Preoperative Diagnosis: Severe aortic valve stenosis, symptomatic
Postoperative Diagnosis: Same
Procedure(s) Performed: Right trans femoral TAVR with a 20 mm Goodrich TAVR valve
Date of Procedure: 03/25/2024
Comorbidities:
1. Severe aortic stenosis, symptomatic
2. Acute on chronic congestive heart failure, systolic and diastolic dysfunction, LVEDP pre-TAVR was 30 mmHg
3. Morbidly obese with a BMI of greater than 30
4. Hypertension
5. Hyperlipidemia
6. Osteoarthritis
7. LINDA
8. History of GI bleed
9. CAD status post PCI
Cardiac Surgeon: Dar Reyes MD, MS
Flour Mixer Helper: Miriam Issa MD
Anesthesia: Conscious Sedation and Local Analgesia
EBL: 150cc
Products: none
Implant: 29 mm Goodrich JANE TAVR valve, SN: [id number]
Indication(s) for Procedures: 78-year-old male with symptomatic severe aortic stenosis. Multidisciplinary team discussion including interventional cardiology, echocardiography, and general cardiology all felt the consensus that he was appropriate
transcatheter intervention. CT-TAVR protocol revealed acceptable anatomy for TAVR access and implantation.
Start time: 0943hrs
Deployment time: 1033hrs
End time: 1048hrs
Radiation Dose (mGy): 1030.10
DAP (cm2.Gy): 85.0863
Fluoroscopy time (minutes): 11.4
Contrast volume (ml): 130
TAVR gradient (mmHg): 4mmHg
Heparin Dose: 9000units
Protamine Dose: 50mg
Final Valve Positionin/25
Findings: Preoperative LVEF was 60% and was 60% following TAVR without inotropic support. Function was overall normal without regional wall motion abnormalities or dyskinesia. The aortic valve was well seated without detectable PVL and mean gradient
across the new valve was 4-5mmHg. after deployment of valve, he developed a new right bundle branch block with did not require any pacing while on the cath lab technologist table. There was successful placement of 29 mm TAVR valve without acute complications.
His LVEDP was discovered to be 30 mmHg pre-TAVR indicating that had acute on chronic systolic diastolic heart failure with volume overload.
Access:
1. Device -right common femoral artery, perclose x 2
2. Pigtail -left common femoral artery [+ 6Fr angioseal]
3. Transvenous Pacer -left common femoral vein
Description of Procedure: The patient was taken to the cath lab technologist. Their identity and procedure to be performed were verified and they were positioned supine on the cath lab technologist table. Induction via conscious sedation. The patient was then prepped and
draped from chin to thigh in a sterile fashion. A preoperative time-out was performed with all members of the team present. Arterial and venous access was performed using fluoroscopy and ultrasound guidance with micropuncture and Seldinger
technique. Two perclose devices were used on the device side followed by access to the aorta with a stiff wire to facilitate E-sheath placement. Heparin was given. A stiff straight wire and AL-1 catheter was used to cross the aortic valve. An LVEDP
was measured here the stiff wire was exchanged for an extra stiff coiled tip wire. The valve was prepped and mounted on to the device carrier. An ACT of >250 was achieved. We verified x 3 that the valve was mounted in the correct orientation with
the skirt of the valve directed toward the tip of the device carrier. We advanced the device into the descending thoracic aorta where the valve was them mounted onto the balloon under fluoroscopy. The device was flexed and advanced over the arch
into the root and positioned across the aortic valve. Contrast fluoroscopy was used to visualize the prosthesis across the valve and to guide positioning. A pigtail catheter in the RCC as used as a guide. We aimed to have the bottom of the device
marker at the annular hinge point. The device sheath was pulled back. We performed a quick pre-deployment time out. The pacer was turned on and had capture. Blood pressure fell accordingly, angiography was done to verify the intended final placement
and the valve was deployed with 5 seconds of rapid pacing to nominal volume. The balloon was deflated and the pacer was turned off. We had recovery of vitals. The device carrier was unflexed and positioned back in the descending thoracic aorta. A
transthoracic echocardiogram was performed. The device was removed from the E-Sheath maintaining wire access followed by removal of the E-sheath as we cinched down the perclose devices. There was acceptable hemostasis. The pigtail was withdrawn into
the descending/abdominal and completion aortogram with runoff run-off angiography was performed. There was no stenosis or dissection of bilateral iliofemoral systems. There was acceptable hemostasis of bilateral groins and manual pressure was held
following wire removal. Low dose protamine was administered after checking another ACT.
All instrument, sponge, and needle counts were confirmed to be correct x 2 at the end of the operation. The patient was transferred to the cardiac intensive care unit in stable condition.
I, Dr. Dar Reyes, was present, scrubbed for, and performed all critical elements of this procedure.
Dar Reyes MD
Cardiothoracic Surgeon
[facility]
This operative dictation was created using the [employer] dictation system. Please excuse any grammatical, typographical, or 'sound alike' errors
--- NOTE | 2024-03-25 12:57 | PTCARENOTE ---
Received pt from the manager cath lab. VSS. B/L groin sites ecchymotic, no redness, no swelling, no hematoma. B/L groin dressings clean, dry and intact. Orders noted. Will monitor.
[2024-03-25] MEDS: NSS 500 VEN SHEATH (13:03)
[2024-03-25] MEDS: ANCEF 10 IV ×2 (13:03)
[2024-03-25] MEDS: ROXICODONE 5 MG PO (15:03)
[2024-03-25] MEDS: LASIX 40 MG IV (15:04)
--- NOTE | 2024-03-25 15:04 | CM ---
CM following for DC planning needs.
Pt. in OR today for planned TAVR.
DC plan is for home w/ CT Transitional Care RN.
CM to follow.
[2024-03-25] MEDS: ZETIA 10 MG PO (15:19)
[2024-03-25] MEDS: CRESTOR 40 MG PO (15:19)
[2024-03-25] MEDS: ANCEF 5 IV (17:52)
[2024-03-25] MEDS: ZOFRAN 4 MG IV (18:18)
--- NOTE | 2024-03-25 18:42 | PTCARENOTE ---
Pt c/o abdominal fullness and nausea. Pt assisted to the bathroom at his request for possible BM. Pt just passing gas. Pt stated that he threw up 'a little' phlem. Pt assisted back to bed. Pt given zofran and nathaly tabatha. VSS. Will monitor.
[2024-03-25] MEDS: TYLENOL 650 MG PO (20:37)
[2024-03-25] MEDS: ZESTRIL 20 MG PO (20:37)
--- NOTE | 2024-03-25 23:40 | PTCARENOTE ---
Received patient at change of shift. SR with a BBB on the monitor, HR in the 90s. Bilateral groin dressings with minimal drainage unchanged, surrounding skin ecchymotic. PRN Tylenol administered for lower back pain, see MAR. When reassessing pain
level, pt mentioned having 2/10 chest pain briefly. Pt reports no current chest pain. Educated pt on the importance of alerting nurse of chest pain, pt verbalizes understanding and states he will report if he experiences any more chest pain. Call
olson within reach.
[2024-03-26] VITALS (7 sets, daily range): BP systolic 127–167; BP diastolic 57–79; PULSE 90; O2SAT 95; BMI 35.3
[2024-03-26 04:08] LABS: Hematocrit 40.2 % (39.0-52.0); Hemoglobin 13.7 g/dL (13.0-18.0); Mean Corp Hgb Conc. 34.1 g/dL (33.0-37.0); Mean Corpuscular Hgb 29.1 pg (27.0-31.0); Mean Corpuscular Volume 85.4 fL (80.0-94.0); Mean Platelet Volume 10.8 fL (7.4-10.4); Platelet Count 126 10^3/uL (130-400); Red Blood Cell Count 4.71 10^6/uL (4.70-6.10); Red Cell Dist. Width 13.2 % (11.5-14.5)
[2024-03-26 04:11] LABS: Blood Urea Nitrogen 20 mg/dl (9-20); Calcium 9.4 mg/dl (8.4-10.2); Carbon Dioxide 28 mmol/L (22-30); Chloride 102 mmol/L (98-107); Estimated Creatinine Clearance 94 ml/min; Glucose 114 mg/dl (70-99); Potassium 3.8 mmol/L (3.5-5.1); Sodium 139 mmol/L (135-145); eGFR > 60.00
--- NOTE | 2024-03-26 07:12 | W.PN.CT ---
Today's Communication / Plan
-
-pod #1
-no significant issues overnight, c/o chronic back pain
-gave Lisinopril for HTN
-nsr 80s-90s overnight. No toro or pauses
-new LBBB postop- held Toprol
-iv Lasix post TAVR with good response (UO 2024+)
-Echo today
-current meds (ASA, Plavix, Lisinopril, Crestor, Zetia). Held Toprol until eval by Cardiology d/t LBBB
-encourage IS, OOB, ambulate
Assessment / Plan
-
- Severe symptomatic - s/p Right trans femoral TAVR with a 20 mm Goodrich TAVR valve on 03/25/24, pod #1
- Acute on chronic congestive heart failure, systolic and diastolic dysfunction, LVEDP pre-TAVR was 30 mmHg
- LVEF was 60% pre and post TAVR without inotropic support, no wma. The aortic valve was well seated without detectable PVL and mean gradient across the new valve was 4-5mmHg.
- Acute postop LBBB
- Class 2 obesity (BMI 35)
- Hypertension
- Hyperlipidemia
- Osteoarthritis
- LINDA
- History of GI bleed
- CAD status post PCI
Discussed patient care with: Nursing and Care Team
Subjective
-
Date of Service: March 26, 2024
Objective Data
-
PT 12.3 Sec (11.4-14.6) 03/15/24 12:11
INR 0.89 03/15/24 12:11
APTT 28.0 Sec (23.4-35.0) 03/15/24 12:11
Vital Signs
Vital Signs
Temp Pulse Resp BP Pulse Ox
98.2 F 100 18 163/72 95
03/25/24 22:37 03/25/24 20:37 03/25/24 22:37 03/25/24 20:37 03/25/24 22:37
CT Intake/Output/Weight
03/25/24 03/25/24 03/26/24
06:59 18:59 06:59
Intake Total 240 / 240
Output Total 2024
Balance -1784 / -1784
SaO2: 95
Physical Exam
-
General: Awake and AOx3
Cardiovascular: Regular rate & rhythm, No Murmurs and No Rub
Respiratory: Decreased Breath Sounds
Incision: Other (groins are cdi, soft, nontender, no hematoma b/l)
Extremities: No Edema
Abdomen: soft, nontender, nondistended, + bowel sounds
Data Reviewed
-
Lab Results: Results Reviewed
Medications: Active Meds Reviewed
Chest X-Ray: Report Reviewed and Image Reviewed
ECG: Report Reviewed and Image Reviewed
[2024-03-26] MEDS: ZETIA 10 MG PO (09:00)
[2024-03-26] MEDS: CRESTOR 40 MG PO (09:00)
[2024-03-26] MEDS: ASPIR LOW (ENTERIC COATED) 81 MG PO (09:00)
[2024-03-26] MEDS: ZESTRIL 20 MG PO (09:01)
[2024-03-26] MEDS: PLAVIX 75 MG PO (09:01)
[2024-03-26] MEDS: FEOSOL 325 MG PO (09:01)
--- NOTE | 2024-03-26 09:16 | W.DCSUMMARY ---
Discharge Summary
Discharge Data
Date of Admission: 03/25/24
Date of Discharge: 03/26/24
-
Pending Results: No
Hospital Course
Primary care physician: Butch Dash
Outpatient brownell operator: Florencia Whatley
Inpatient consultants: [facility]
Procedures:
1. TAVR
Primary Diagnosis:
1. Severe nonrheumatic aortic stenosis
Secondary Diagnoses:
1. Acute on chronic congestive heart failure, systolic and diastolic dysfunction, LVEDP pre-TAVR was 30 mmHg
2. Morbidly obese (BMI 35)
3. Hypertension
4. Hyperlipidemia
5. Osteoarthritis
6. LINDA with CPAP use
7. History of GI bleed
8. CAD status post PCI
9. Prostate cancer status post prostatectomy 2002
10. Coronary artery disease
HPI: 78-year-old male was electively admitted on 03/25/2024 for TAVR due to severe symptomatic nonrheumatic aortic stenosis.
Hospital course: Patient underwent a right transfemoral TAVR #20 mm Goodrich valve procedure with Drs. Dar Reyes and Miriam Issa. A new left bundle branch block was noted postprocedure. Patient received Lasix 40 mg IV for preop LVEDP of 30.
Patient had no issues overnight. Hemoglobin and creatinine were stable. CXR was stable and predischarge echocardiogram reported an EF of 60-65%, AV gradient of 21/13 mmHg, no AI and mild MR. Per cardiology, Toprol XL was resumed at a lower dose
(25mg from 50mg daily). Patient was given a rhythm star monitor on discharge and will be followed by cardiology. Patient was deemed stable for discharge home today.
Home medication changes:
Toprol dose decreased to 25mg daily
Discharge Plan
-
Patient Disposition: Home (Routine Discharge)
Discharge Diagnosis/Procedures: TF-TAVR
Condition: Good
Diet: Low Cholesterol and 2 Gram Sodium
Activity: As tolerated
Driving Restrictions: No driving for 1 week
Bathing Restrictions: OK to Shower
Others Tests: Follow Up Echocardiogram: 04/29/2024 at 2pm at [facility]
Other Services: Cardiac Rehab
Wound Care: Please do not apply lotions, creams or powders to groin areas. Please monitor groins for increased pain, swelling, redness or drainage. Notify your doctor if any occur.
Specialty Instructions: Weigh Daily- Call MD for wt gain/loss 3 lbs overnight/5 lbs in 1 week
Referrals:
CT Transitional Care Nurse [Outside] (The Cardiothoracic Transitional Care Nurse will call you to set up a visit in 1-2 days.)
[facility]. Cardiac Rehab [Outside] - 05/04/24 1:00 pm
(Cardiac Rehab Orientation appointment is on Friday05/04/24 1pm.
The Cardiac Rehab gym is located on the first floor of the [facility].)
Joaquina Heredia PA-C [Specified Professional Personl] - 05/03/24 12:40 pm
Butch Donahue DO [Family Provider] -
Prescriptions:
New
metoprolol succinate [Toprol XL] 25 mg tablet extended release 24 hr
25 mg PO DAILY Qty: 30 1RF
Continued
Co Q-10 300 MG capsule
300 mg PO DAILY
ferrous sulfate [FeroSul] 325 MG tablet
325 mg PO DAILY
aspirin 81 MG tablet,delayed release (DR/EC)
81 mg PO DAILY Qty: 0 0RF
ezetimibe [Zetia] 10 mg Tablet
10 mg PO DAILY
lisinopril 20 mg Tablet
20 mg PO DAILY Qty: 0 0RF
clopidogrel 75 mg tablet
75 mg PO DAILY Qty: 90 10RF
rosuvastatin 40 mg tablet
40 mg PO DAILY Qty: 90 5RF
krill oil 1 EACH capsule
1 ea PO DAILY Qty: 0 0RF
furosemide [Lasix] 20 mg tablet
20 mg PO DAILY
Changed
cholecalciferol (vitamin D3) 1,000 UNITS tablet
2,000 unit PO DAILY Qty: 0 0RF
Discontinued
metoprolol succinate [Toprol XL] 50 mg tablet extended release 24 hr
50 mg PO DAILY Qty: 90 5RF
Discharge Orders:
Discharge Patient (As Directed); Ordered 03/26/24
Ordered By: Lucina Mcadams
Care Plan Goals
Care Plan Goals:
Problem: Readiness for enhanced knowledge related to diagnosis and treatment plan
Goal: Understand your diagnosis and treatment plan needs, including medications if applicable.
Instructions: Know your diagnosis, underlying causes and treatment plan options, including medications if applicable. Consult with your health care team to learn about your diagnosis and treatment plan, including medications if applicable.
Discharge Date and Time
Print Language: OMANI
--- NOTE | 2024-03-26 11:15 | W.PN.UPDATE ---
Update Note
Progress Note Update
Patient ordered to have rhythm star home monitoring. Device given to patient to apply after discharge. Reviewed with patient how to apply, charge, report symptoms and send monitor back after the 14 days. Allowed for and answered questions.
--- NOTE | 2024-03-26 13:44 | CM ---
CM following for DC planning needs.
Reviewed DC plan; anticipate DC to home w/ CT Transitional Care RN.
CM to cont. to follow.
--- NOTE | 2024-03-26 14:10 | PTCARENOTE ---
Pt OOB in chair and ambulating in room and [place], jennie well, denies pain.
--- NOTE | 2024-03-26 15:57 | W.PN.CARDCBS ---
Today's Communication / Plan
-
-pod #1 s/p 29 mm Goodrich JANE transfemoral TAVR via right common femoral artery.
-no significant issues overnight
-nsr 80s-90s overnight. No toro or pauses
-new LBBB postop-we will reduce Toprol to 25 mg daily from 50 mg daily and arrange for a front desk monitor at the time of discharge.
-iv Lasix post TAVR with good response (UO 2024+)
-Echo today which showed a stable valve without significant PVL or pericardial effusion.
-Stable for discharge from a cardiac standpoint.
Impression / Plan
-
Assessment:
Outpatient Egg Grader: Dr. Florencia Whatley
- Severe symptomatic - s/p Right trans femoral TAVR with a 29 mm Goodrich TAVR valve on 03/25/24, pod #1
- Acute on chronic congestive heart failure, systolic and diastolic dysfunction, LVEDP pre-TAVR was 30 mmHg
- LVEF was 60% pre and post TAVR without inotropic support, no wma. The aortic valve was well seated without detectable PVL and mean gradient across the new valve was 4-5mmHg.
- Acute postop LBBB
- Morbidly obesity (BMI 35)
- Hypertension
- Hyperlipidemia
- Osteoarthritis
- LINDA
- History of GI bleed
- CAD status post PCI
Progress Note - Egg Grader
Subjective
Date of Service: March 26, 2024
Doing well this morning. Mild soreness at the groins but significantly improved since yesterday. Has been out of bed ambulating without any difficulty.
Objective
Labs:
03/26/24 03:24
03/26/24 03:24
Labs
Hgb 13.7 g/dL (13.0-18.0) 03/26/24 03:24
Hct 40.2 % (39.0-52.0) 03/26/24 03:24
Plt Count 126 10^3/uL (130-400) L 03/26/24 03:24
PT 12.3 Sec (11.4-14.6) 03/15/24 12:11
INR 0.89 03/15/24 12:11
APTT 28.0 Sec (23.4-35.0) 03/15/24 12:11
Sodium 139 mmol/L (135-145) 03/26/24 03:24
Potassium 3.8 mmol/L (3.5-5.1) 03/26/24 03:24
BUN 20 mg/dl (9-20) 03/26/24 03:24
Creatinine 0.8 mg/dL (0.7-1.3) 03/26/24 03:24
Glucose 114 mg/dl (70-99) H 03/26/24 03:24
Vital Signs and I&O:
Vital Signs
Temp Pulse Resp BP Pulse Ox
97.5 F 92 18 137/62 95
03/26/24 11:34 03/26/24 12:15 03/26/24 11:34 03/26/24 11:31 03/26/24 11:34
Vital Signs
Temp Pulse Resp BP Pulse Ox
97.5 F 92 18 137/62 95
03/26/24 11:34 03/26/24 12:15 03/26/24 11:34 03/26/24 11:31 03/26/24 11:34
Intake & Output
03/24/24 03/25/24 03/26/24 03/27/24
06:59 06:59 06:59 06:59
Intake Total 240 / 240
Output Total 2475 / 2475 400 / 400
Balance -2235 / -2235 -400 / -400
Physical Exam
Physical Exam
Physical Exam
-
General: Awake and AOx3, obese
Cardiovascular: Regular rate & rhythm, No Murmurs and No Rub
Respiratory: Decreased Breath Sounds at bases
Incision: Other (groins are cdi, soft, nontender, no hematoma b/l)
Extremities: No Edema
== END 2024-03-26 16:55 | disposition home or self-care (01) | DRG 266 ==
LOC: IVU 07:32
PROVIDERS: Nurse Practitioner; ADMITTING PHYSICIAN Thoracic Surgery (Cardiothoracic Vascular Surgery); CONSULT PHYSICIAN Internal Medicine Cardiovascular Disease; FAMILY PHYSICIAN Internal Medicine
PROC: 02RF38Z Replacement of Aortic Valve with Zooplastic Tissue, Percutaneous Approach (ICD-10-PCS; 2024-03-25)
DX: I35.0 Nonrheumatic aortic (valve) stenosis (principal); Z00.6 Encounter for examination for normal comparison and control in clinical research program; I50.43 Acute on chronic combined systolic (congestive) and diastolic (congestive) heart failure; I45.2 Bifascicular block; I25.10 Atherosclerotic heart disease of native coronary artery without angina pectoris; I11.0 Hypertensive heart disease with heart failure; K21.9 Gastro-esophageal reflux disease without esophagitis; E78.00 Pure hypercholesterolemia, unspecified; G47.33 Obstructive sleep apnea (adult) (pediatric); I34.0 Nonrheumatic mitral (valve) insufficiency; I36.1 Nonrheumatic tricuspid (valve) insufficiency; M19.90 Unspecified osteoarthritis, unspecified site; E66.812 Obesity, class 2; Z68.35 Body mass index [BMI] 35.0-35.9, adult; Z79.02 Long term (current) use of antithrombotics/antiplatelets; Z79.82 Long term (current) use of aspirin; Z79.899 Other long term (current) drug therapy; Z82.49 Family history of ischemic heart disease and other diseases of the circulatory system; Z85.46 Personal history of malignant neoplasm of prostate; Z87.891 Personal history of nicotine dependence; Z95.5 Presence of coronary angioplasty implant and graft
CPT/HCPCS: 93308; 33361; 36415; 71045; 71046; 80048; 80053; 81003; 82248; 83036; 83880; 85025; 85027; 85347; 85610; 85730; 86850; 86900; 86901; 87070; 93005; 93306; 93321; 93325; C1760; C1769; C1894; Q9950

== ENCOUNTER 2024-05-14 11:31 | Outpatient (RCR) | payer MEDICARE, OTHER, SELFPAY | END 2024-05-14 23:59 | disposition home or self-care (01) | LOC: CRHB 11:31 | PROVIDERS: ATTENDING PHYSICIAN Internal Medicine Cardiovascular Disease | DX: Z95.4 Presence of other heart-valve replacement (principal) | CPT/HCPCS: G0422; G0423 ==

== ENCOUNTER 2024-06-08 16:57 | Emergency (ER) | payer MEDICARE, OTHER, SELFPAY ==
[2024-06-08 17:02] VITALS: BP 151/71
--- NOTE | 2024-06-08 19:08 | ED.GENMED ---
History of Present Illness
General
Chief Complaint: Nose Bleed
Source: patient
Time Seen by Provider: 06/08/24 18:47
History of Present Illness
History of Present Illness:
78-year-old male on aspirin and Plavix presents with right sided nosebleed ongoing for the majority of the day today. No injury. No lightheadedness. No headache. No other complaints
Past History
Past History
ED Past Medical History: Asthma, GERD, Hypercholesterolemia and Other (osteoarthritis)
ED Past Surgical History: Orthopedic
Social History
Tobacco: Former smoker
Alcohol: Occasional
Drug: None
Personal:
Living: with family
Employment: Employed
Family History
Family History: CAD
Phy Exam
Physical Exam
Physical Exam:
General: Well-appearing male no acute respiratory distress
HEENT: Normocephalic atraumatic
Nasal exam: Right nasal cavity with fresh blood but no obvious active bleeding. Posterior pharynx without any obvious blood. Left nasal cavity patent
Course
Vital Signs
Initial and Last Documented VS:
Initial Vital Signs
Temp Pulse Resp BP Pulse Ox
98.6 F 77 18 151/71 97
06/08/24 17:02 06/08/24 17:02 06/08/24 17:02 06/08/24 17:02 06/08/24 17:02
Last Documented Vital Signs
Temp Pulse Resp BP Pulse Ox
98.6 F 77 18 151/71 97
06/08/24 17:02 06/08/24 17:02 06/08/24 17:02 06/08/24 17:02 06/08/24 17:02
MDM/Problems Addressed
Differential Diagnosis Includes:
Patient came for evaluation of nosebleed. No obvious anterior source. However there is some friable membranes more posterior on the medial aspect. This may be the source of bleeding. Piece of cotton with lidocaine and epinephrine were placed
*Critical Care Note
Total Time (30-74mins, 75-104mins- exclusive of procedures): Not Applicable
Update Note
Update Note:
The area was cauterized after the cotton was removed. Patient was observed for period of time and walked around to the bathroom. There is no further bleeding. Stable for discharge
ED Attending Note
-
Portions of this chart may have been created with voice recognition software.� Occasional wrong word or��sound alike� substitutions may have occurred due to the inherent limitations of voice recognition software.
Discharge Plan
Departure
Patient Disposition: Home (Routine Discharge)
Date of Disposition: 06/08/24
Time of Disposition: 20:19
Patient with high blood pressure during this ER visit?: No
Discharge Problem:
Acute anterior epistaxis
Prescriptions:
No Action
Co Q-10 300 MG capsule
300 mg PO DAILY
ferrous sulfate [FeroSul] 325 MG tablet
325 mg PO DAILY
aspirin 81 MG tablet,delayed release (DR/EC)
81 mg PO DAILY Qty: 0 0RF
ezetimibe [Zetia] 10 mg Tablet
10 mg PO DAILY
lisinopril 20 mg Tablet
20 mg PO DAILY Qty: 0 0RF
clopidogrel 75 mg tablet
75 mg PO DAILY Qty: 90 10RF
rosuvastatin 40 mg tablet
40 mg PO DAILY Qty: 90 5RF
cholecalciferol (vitamin D3) 1,000 UNITS tablet
2,000 unit PO DAILY Qty: 0 0RF
krill oil 1 EACH capsule
1 ea PO DAILY Qty: 0 0RF
furosemide [Lasix] 20 mg tablet
20 mg PO DAILY
metoprolol succinate [Toprol XL] 25 mg tablet extended release 24 hr
25 mg PO DAILY Qty: 30 1RF
Referrals:
Butch Donahue DO [Family Provider] -
Activity Restrictions/Additional Instructions:
Keep nasal mucosa moist with Vaseline. Return if needed
Interventions
Interventions:
*Risk Screen - Suicide Last Done: 06/08/24 17:02
*General Assessment Last Done: 06/08/24 19:16
*Neglect/Abuse Screening Last Done: 06/08/24 17:02
*ED COVID-19 Vaccine History Last Done: 06/08/24 17:02
ED-EENT Assessment Last Done: 06/08/24 19:16
Discharge Date and Time
Print Language: OMANI
== END 2024-06-08 21:04 | disposition home or self-care (01) ==
LOC: EMR 16:57
PROVIDERS: EMERGENCY PHYSICIAN Emergency Medicine; FAMILY PHYSICIAN Internal Medicine
DX: R04.0 Epistaxis (principal); J45.909 Unspecified asthma, uncomplicated; K21.9 Gastro-esophageal reflux disease without esophagitis; E78.00 Pure hypercholesterolemia, unspecified; Z87.891 Personal history of nicotine dependence; Z79.02 Long term (current) use of antithrombotics/antiplatelets; Z79.82 Long term (current) use of aspirin
CPT/HCPCS: 30901; 99282

== ENCOUNTER 2024-06-11 11:20 | Outpatient (RCR) | payer MEDICARE, OTHER, SELFPAY | END 2024-06-11 23:59 | disposition home or self-care (01) | LOC: CRHB 11:20 | PROVIDERS: ATTENDING PHYSICIAN Internal Medicine Cardiovascular Disease | DX: Z95.4 Presence of other heart-valve replacement (principal) | CPT/HCPCS: G0422; G0423 ==

== ENCOUNTER → 2024-07-07 09:30 | Outpatient (REF) | payer MEDICARE, OTHER, SELFPAY ==
[2024-07-07 10:30] LABS: % Basophils 0.7 % (0-2); % Immature Granulocytes 0.4 % (0-0.5); % Lymphocytes 23.7 % (20.5-51.1); % Neutrophils 66.2 % (42.2-75.2); Absolute Basophils 0.1 10^3/uL (0-0.2); Absolute Eosinophils 0.1 10^3/uL (0-0.7); Absolute Lymphocytes 1.7 10^3/uL (1.2-3.4); Absolute Monocytes 0.5 10^3/uL (0.1-0.6); Absolute Neutrophils 4.7 10^3/uL (1.4-6.5); Hematocrit 41.4 % (39.0-52.0); Mean Corp Hgb Conc. 33.8 g/dL (33.0-37.0); Mean Corpuscular Volume 85.7 fL (80.0-94.0); Mean Platelet Volume 10.7 fL (7.4-10.4); Nucleated Red Blood Cells % 0 % (-); Platelet Count 130 10^3/uL (130-400); Red Blood Cell Count 4.83 10^6/uL (4.70-6.10); Red Cell Dist. Width 13.5 % (11.5-14.5); White Blood Cell Count 7.1 10^3/uL (4.8-10.8)
[2024-07-07 10:48] LABS: NT-proBNP 76.6 pg/ml
[2024-07-07 11:01] LABS: ALT (SGPT) 25 U/L (0-50); AST (SGOT) 24 U/L (17-59); Albumin 4.6 g/dl (3.5-5.0); Alkaline Phosphatase 48 U/L (38-126); Blood Urea Nitrogen 19 mg/dl (9-20); Calcium 9.8 mg/dl (8.4-10.2); Carbon Dioxide 23 mmol/L (22-30); Chloride 108 mmol/L (98-107); Glucose 110 mg/dl (70-99); HDL Cholesterol 56 mg/dl; LDL Cholesterol, Calculated 51 mg/dl; Potassium 4.4 mmol/L (3.5-5.1); Sodium 141 mmol/L (135-145); Total Bilirubin 0.5 mg/dl (0.2-1.3); Total Cholesterol 128 mg/dl (50-199); Total Protein 6.7 g/dl (6.3-8.2); Triglyceride 105 mg/dl (10-149); Very Low Density Lipoprotein 21 mg/dl (0-30); eGFR > 60.00
== END ==
LOC: REG 09:30
PROVIDERS: ATTENDING PHYSICIAN Internal Medicine Cardiovascular Disease; FAMILY PHYSICIAN Internal Medicine
DX: R07.9 Chest pain, unspecified (principal)
CPT/HCPCS: 36415; 80053; 80061; 83880; 85025

== ENCOUNTER → 2024-07-08 07:46 | Outpatient (REF) | payer MEDICARE, OTHER, SELFPAY | LOC: HWRCS 07:46 | PROVIDERS: ATTENDING PHYSICIAN Internal Medicine Cardiovascular Disease; FAMILY PHYSICIAN Internal Medicine | DX: R07.9 Chest pain, unspecified (principal) | CPT/HCPCS: 78452; 93017; A9500; J2785 ==

== ENCOUNTER 2024-07-12 12:04 | Outpatient (RCR) | payer MEDICARE, OTHER, SELFPAY | END 2024-07-12 23:59 | disposition home or self-care (01) | LOC: CRHB 12:04 | PROVIDERS: ATTENDING PHYSICIAN Internal Medicine Cardiovascular Disease | DX: Z95.4 Presence of other heart-valve replacement (principal) | CPT/HCPCS: G0422; G0423 ==

== ENCOUNTER 2024-08-11 11:31 | Outpatient (RCR) | payer MEDICARE, OTHER, SELFPAY | END 2024-08-11 23:59 | disposition home or self-care (01) | LOC: CRHB 11:31 | PROVIDERS: ATTENDING PHYSICIAN Internal Medicine Cardiovascular Disease | DX: Z95.4 Presence of other heart-valve replacement (principal) | CPT/HCPCS: G0422; G0423 ==

== ENCOUNTER 2024-08-16 11:51 | Outpatient (RCR) | payer MEDICARE, OTHER, SELFPAY | END 2024-08-16 23:59 | disposition home or self-care (01) | LOC: CRHB 11:51 | PROVIDERS: ATTENDING PHYSICIAN Internal Medicine Cardiovascular Disease | DX: Z95.4 Presence of other heart-valve replacement (principal) | CPT/HCPCS: G0422; G0423 ==

== ENCOUNTER → 2024-09-14 09:30 | Outpatient (REF) | payer MEDICARE, OTHER, SELFPAY | LOC: RCS 09:30 | PROVIDERS: ATTENDING PHYSICIAN Internal Medicine Cardiovascular Disease; FAMILY PHYSICIAN Internal Medicine | DX: Z95.2 Presence of prosthetic heart valve (principal) | CPT/HCPCS: 93306 ==

== ENCOUNTER → 2024-10-29 11:51 | Outpatient (REF) | payer MEDICARE, OTHER, SELFPAY ==
[2024-10-29 13:16] LABS: Blood Urea Nitrogen 17 mg/dl (9-20); Calcium 9.7 mg/dl (8.4-10.2); Carbon Dioxide 28 mmol/L (22-30); Chloride 107 mmol/L (98-107); Glucose 93 mg/dl (70-99); Potassium 4.7 mmol/L (3.5-5.1); Sodium 140 mmol/L (135-145); eGFR > 60.00
== END ==
LOC: REG 11:51
PROVIDERS: ATTENDING PHYSICIAN Internal Medicine Cardiovascular Disease; FAMILY PHYSICIAN Internal Medicine
DX: I10 Essential (primary) hypertension (principal)
CPT/HCPCS: 36415; 80048